=== PATIENT | female | born 1995 | race Caucasian/White ===

== ENCOUNTER 2021-02-25 18:00 | Outpatient (CLI) | payer BC, SELFPAY ==
[2021-02-25 18:19] VITALS: BP 122/69; PULSE 82
[2021-02-25 18:21] VITALS: BMI 21.4
[2021-02-25 19:30] LABS: Absolute Lymphocyte Count 1.95 X10^3/uL (0.83-4.51); Absolute Neutrophil Count 4.7 X10^3/uL (2.0-7.7); Basophil# 0.04 X10^3/uL; Basophil% 0.5 % (0-1); Eosinophil# 0.09 X10^3/uL; Eosinophils% 1.2 % (0-5); Hematocrit 34.8 % (37-47); Hemoglobin 12.2 g/dL (12.0-15.0); Lymphocyte # 1.95 X10^3/ul (0.83-4.51); Lymphocyte % 26.8 % (19-41); Mean Corp Hgb Conc 35.1 g/dL (32-36); Mean Corpuscular Hgb 30.6 pg (27.0-32.0); Mean Corpuscular Volume 87.2 fL (81-99); Mean Platelet Vol. 9.9 fl (6.2-12.0); Monocyte# 0.52 X10^3/uL; Monocyte% 7.1 % (0-10); NRBC Flagged by Analyzer 0 % (0-5); Neutrophil # 4.65 X10^3/uL (2.7-7.7); Platelet Count 197 K/mm3 (150-450); RBC Distribution Width CV 12.3 % (11.6-14.6); RBC Distribution Width SD 39.5 fl (35.1-43.9); Red Blood Count 3.99 M/mm3 (4.2-5.4); White Blood Count 7.3 K/mm3 (4.4-11.0)
[2021-02-25 19:31] LABS: Color, Urine Yellow (Yellow); Glucose, Dipstick Normal (Normal); Ketone-Dipstick Negative (Negative); Leukocyte Esterase-Dipstick Negative /ul (Negative); Nitrite-Dipstick Negative (Negative); Occult Blood-Urine Negative /ul (Negative); Protein-Dipstick Negative (Negative); Urine Bilirubin Dipstick Negative (Negative); Urine Clarity Clear (Clear); Urine Urobilinogen Normal (Normal); Urine pH 6.5 (5.0 - 8.0)
--- NOTE | 2021-02-25 21:35 | OB.TRI.NOTE ---
HPI - General HPI Narrative LAKESHA CORTEZ, is a 25 F who presents with RLQ pain. The pain she rates a 7/10 and is with movement. No fever, chills, nausea, vomiting, urinary symptoms, change in BM's, vb, lof, ctx. Good FM. Eating well. Maternal Data Information NATALIYA Calculator Estimated Delivery Date Method Current WG Current Estimate 06/21/21 Ultrasound #1 23w 3d Other Estimates 06/16/21 LMP (Certain) 24w 1d PFSH PFSH Home Medications [id number] [] tab PO 02/25/21 [History Last Taken 02/24/21 18:30] Allergy/AdvReac Type Severity Reaction Status Date / Time No Known Allergies Allergy Verified 02/25/21 18:22 NST FHR Rate Baby A Baseline: 130 Variability:: Moderate NST Reactive:: Appropriate for gestational age Assessment & Plan (1) 23 weeks gestation of : PLAN: Abd exam non acute VSS Afebrile WBC of 7 Likely MSK and round ligament pain Discussed Tylenol PRN To call office in morning if pain not improving (2) RLQ abdominal pain:
== END 2021-02-25 19:55 | disposition home or self-care (01) ==
LOC: WPOUT 18:18 → WP 18:18
PROVIDERS: Visit Provider Obstetrics & Gynecology
DX: O26.892 Other specified pregnancy related conditions, second trimester (principal); R10.31 Right lower quadrant pain; Z3A.23 23 weeks gestation of pregnancy
CPT/HCPCS: 36415; 59025; 59050; 81002; 85025; 99218; G0378

== ENCOUNTER 2021-06-14 04:55 | Outpatient (CLI) | payer BC, SELFPAY ==
[2021-06-14 05:10] VITALS: BMI 23.3
[2021-06-14] MEDS: Acetaminophen 500 MG Tablet 1000 MG PO (05:25)
[2021-06-14] MEDS: Lactated Ringers 1,000 ML 999 ML IV (05:26)
[2021-06-14 05:29] VITALS: BP 122/84; PULSE 100; RESP 16; TEMP 36.5; O2SAT 100
[2021-06-14 05:46] LABS: Absolute Lymphocyte Count 1.81 X10^3/uL (0.83-4.51); Absolute Neutrophil Count 4.5 X10^3/uL (2.0-7.7); Basophil# 0.03 X10^3/uL; Basophil% 0.4 % (0-1); Eosinophil# 0.08 X10^3/uL; Eosinophils% 1.1 % (0-5); Hemoglobin 12.6 g/dL (12.0-15.0); Lymphocyte # 1.81 X10^3/ul (0.83-4.51); Lymphocyte % 25.7 % (19-41); Mean Corpuscular Hgb 30.5 pg (27.0-32.0); Mean Corpuscular Volume 84.7 fL (81-99); Monocyte# 0.57 X10^3/uL; Monocyte% 8.1 % (0-10); NRBC Flagged by Analyzer 0 % (0-5); Neutrophil # 4.53 X10^3/uL (2.7-7.7); Neutrophil % 64.3 % (47-70); Platelet Count 223 K/mm3 (150-450); RBC Distribution Width CV 12.1 % (11.6-14.6); RBC Distribution Width SD 36.3 fl (35.1-43.9); Red Blood Count 4.13 M/mm3 (4.2-5.4); White Blood Count 7.1 K/mm3 (4.4-11.0)
[2021-06-14] MEDS: Lactated Ringers 1,000 ML 150 ML IV (06:28)
--- NOTE | 2021-06-14 07:20 | NURSING ---
Dr. James at bedside with ultrasound to confirm breech presentation. Fetus discovered to be in vertex position with favorable lie for vaginal delivery. Plan is to discharge patient home. Office will call patient to schedule appointment for plan going forward. Patient agreeable with plan.
--- NOTE | 2021-06-14 07:29 | PCM.PN.BLA ---
Progress Note At bedside to examine pt. She felt some abdominal pains yesterday and wondered if the baby turned. TAUElham performed showing baby in vertex presentation. On palpation he feels engaged in the pelvis. Discussed elective IOL versus awaiting spontaneous labor. Discussed possibility that baby turns to breech again, but based on exam today he feels engaged and I think that is unlikely. Will have the office call her to schedule follow up on Thursday to re ultrasound her and discuss induction.
== END 2021-06-14 23:59 | disposition home or self-care (01) ==
LOC: WP 07:42 → WPOUT 08:23 → WP 08:23
PROVIDERS: Referring Provider Obstetrics & Gynecology; Visit Provider Obstetrics & Gynecology
PROC: (CPT 59514; principal; 2021-06-14 07:15)
DX: O26.899 Other specified pregnancy related conditions, unspecified trimester (principal); R10.9 Unspecified abdominal pain
CPT/HCPCS: 96360; 36415; 59050; 76815; 85025; 86850; 86900; 86901; 87426; 99218; J7120; G0378

== ENCOUNTER 2021-06-25 06:50 | Inpatient (IN) | payer BC, SELFPAY ==
[2021-06-25] VITALS (66 sets, daily range): BP systolic 96–142; BP diastolic 50–82; PULSE 63–128; RESP 16; TEMP 36.3–37.1; O2SAT 82–100; BMI 23.0
[2021-06-25] MEDS: Lactated Ringers 1,000 ML 50 ML IV (08:01)
[2021-06-25] MEDS: Oxytocin 30 units/NS 500 ml 30 UNITS/500 ML IV.SOLN IV (08:12)
[2021-06-25 08:20] LABS: Absolute Lymphocyte Count 1.89 X10^3/uL (0.83-4.51); Absolute Neutrophil Count 6.2 X10^3/uL (2.0-7.7); Basophil# 0.05 X10^3/uL; Basophil% 0.6 % (0-1); Eosinophil# 0.12 X10^3/uL; Eosinophils% 1.4 % (0-5); Hematocrit 35.8 % (37-47); Hemoglobin 12.6 g/dL (12.0-15.0); Lymphocyte # 1.89 X10^3/ul (0.83-4.51); Lymphocyte % 21.4 % (19-41); Mean Corp Hgb Conc 35.2 g/dL (32-36); Mean Corpuscular Hgb 29.6 pg (27.0-32.0); Mean Corpuscular Volume 84.2 fL (81-99); Mean Platelet Vol. 10.4 fl (6.2-12.0); Monocyte% 6.8 % (0-10); NRBC Flagged by Analyzer 0 % (0-5); Neutrophil # 6.15 X10^3/uL (2.7-7.7); Neutrophil % 69.5 % (47-70); Platelet Count 183 K/mm3 (150-450); RBC Distribution Width CV 12.8 % (11.6-14.6); RBC Distribution Width SD 38.7 fl (35.1-43.9); Red Blood Count 4.25 M/mm3 (4.2-5.4); White Blood Count 8.8 K/mm3 (4.4-11.0)
--- NOTE | 2021-06-25 09:16 | PCM.HP.OB ---
HPI - General General Date of Admission: 06/25/21 HPI Narrative LAKESHA CORTEZ, is a 25 F who presents for induction. Maternal Data Information NATALIYA Calculator Estimated Delivery Date Method Current WG Current Estimate 06/21/21 Ultrasound #1 40w 4d Other Estimates 06/16/21 LMP (Certain) 41w 2d PFSH PFSH Medical History (Updated 06/25/21 @ 09:[address] Daniel Quiñones MD) Post term over 40 weeks Medical History no medical history Home Medications [id number]-[id number] [] 1 tab PO DAILY 02/25/21 [History Last Taken 06/24/21 20:00 1 tab] Allergy/AdvReac Type Severity Reaction Status Date / Time No Known Allergies Allergy Verified 06/25/21 07:34 Social History Smoking Status: Never smoker History Elective abortions Hx Para 0 Spontaneous abortions Hx # Term Pregnancies Ectopic pregnancies Hx # Pregnancies Multiple births # of living children NST FHR Rate Baby A Baseline: 130 Variability:: Moderate Accelerations:: 15 x 15 Decelerations:: None Uterine Activity:: Q 2 minutes Vital Signs Vital Signs Vital Signs: 06/25/21 07:34 06/25/21 07:49 06/25/21 07:56 Temperature 97.4 F L 97.3 F L 97.7 F L Temperature Source Temporal Oral Pulse Rate 98 Blood Pressure 124/72 H BP Systolic 124 BP Diastolic 72 Weight Weight: 134 lb 4.184 oz Body Mass Index (BMI) 23.0 Labs Labs Labs: Blood Type A POSITIVE Antibody Screen NEGATIVE Hct 35.8 % (37-47) L Hgb 12.6 g/dL (12.0-15.0) See [facility] H&P Assessment & Plan (1) Post term over 40 weeks: COMMENT: @ 40&4 PLAN: Admit to L&D Induction - s/p AROM & on pitocin GBS positive - pcn per protocol COVID negative Pain - epidural as desired EFW - less than 4500g, patient with adequate pelvis Routine care
[2021-06-25] MEDS: Lactated Ringers 500 ML 999 ML IV ×2 (11:52→13:44)
[2021-06-25] MEDS: fentaNYL-bupivacaine (epidural) 100 ML BAG EPIDURAL (12:54)
[2021-06-25] MEDS: Penicillin G 3,000,000 Units 50 ML 100 UNITS IV (13:03)
--- NOTE | 2021-06-25 15:47 | EX.PCM.OBRPT ---
Maternal Data Information NATALIYA Calculator Estimated Delivery Date Method Current Current Estimate 06/21/21 Ultrasound #1 40w 4d Other Estimates 06/16/21 LMP (Certain) 41w 2d Vaginal Delivery Maternal Presentation Maternal Presentation: Elective Induction Type of Induction: Pitocin and Amniotomy Operative Information Date of Procedure: 06/25/21 Pre-Operative Diagnosis: Elective induction @ 40&4 Post-Operative Diagnosis: Same Surgery / Procedure Performed: Spontaneous Vaginal Delivery Type of Anesthesia: Epidural Estimated Blood Loss: 400ml Findings Description of Procedure: Patient prepped & draped when C/C/+2. She pushed well to deliver the head. Tight nuchal cord clamped & cut. Then head gently guided to allow delivery of anterior and posterior shoulders. No excess traction placed on head. Body delivered easily. Placenta delivered with gentle traction and good uterine tone obtained. Presentation: OSMANI Amniotic Membrane Rupture Type: Artificial Amniotic Fluid Description: Clear Placental Delivery Description: Expressed Placenta Disposition: [facility] Specimen(s) Removed: Placenta Cord Vessel Description: 3 Vessels Cord Entanglement: Around neck x 2, tight Nuchal Cord Compression: With compression A Gender: Male ([place]) (1 minute): 8 (5 minute): 9 Delayed Cord Clamping: No Post Vaginal Delivery Medications Given After Delivery: IV Pitocin Episiotomy Description: None Laceration: 2nd degree (bilateral vaginal - repaired with 3-0 vicryl) Complication Complications: None
[2021-06-25] MEDS: Oxytocin 30 units/NS 500 ml 30 UNITS/500 ML IV.SOLN 334 UNITS IV (16:21)
--- NOTE | 2021-06-25 18:38 | NURSING ---
Pt epidural cath removed, blue tip intact.
[2021-06-25] MEDS: 0.9% Saline Lock 10 ML Syringe IV (18:54)
[2021-06-25] MEDS: Ibuprofen 600 MG Tablet PO (22:17)
[2021-06-25] MEDS: Acetaminophen 500 MG Tablet 1000 MG PO (23:55)
[2021-06-26 00:13] VITALS: BP 108/81; PULSE 86; RESP 16; TEMP 36.6
[2021-06-26 03:15] VITALS: BP 123/59; PULSE 91; RESP 16; TEMP 36.5
[2021-06-26] MEDS: Ibuprofen 600 MG Tablet PO ×2 (04:23→10:14)
[2021-06-26] MEDS: Acetaminophen 500 MG Tablet 1000 MG PO ×2 (06:11→18:33)
[2021-06-26 08:25] VITALS: BP 115/45; PULSE 90; RESP 16; TEMP 36.8
--- NOTE | 2021-06-26 08:56 | PCM.PROGNOTE ---
Subjective Subjective patient seen at bedside, doing well. Patient reports good pain control. lochia mild. Objective Data Objective Data Vital Signs: Vital Signs Temp Pulse Resp BP Pulse Ox 98.2 F 90 16 115/45 L 97 06/26/21 08:25 06/26/21 08:25 06/26/21 08:25 06/26/21 08:25 06/25/21 20:54 Oxygen Delivery Method Room Air Weight: 60.9 kg Body Mass Index (BMI) 23.0 Intake & Output: Intake and Output for Last 24 Hours 06/24/21 06/25/21 06/26/21 23:59 23:59 23:59 Intake Total 2607.41 / 2607.41 Output Total 200 / 200 700 / 700 Balance 2407.41 / 2407.41 -700 / -700 Lab / Micro Data Result Diagrams: 06/25/21 07:55 Labs: Laboratory Results - last 24 hr 06/25/21 07:55: Blood Type A POSITIVE, Antibody Screen NEGATIVE Micro: Microbiology 06/25/21 08:00 Nasal Secretion SARS-CoV-2 Antigen (Rapid) - Final Physical Exam Const alert and oriented x3 General Appearance: cooperative HEENT normocephalic Neck General: normal visual inspection GI soft to palpation and non-distended GI Narrative: Fundus firm Extremity normal to inspection and no calf tenderness Skin no rashes or lesions noted Neuro oriented x3 and CN's II-XII intact bilaterally Psych mental status grossly normal Assessment & Plan Assessment/Plan (1) Vaginal delivery: PLAN: PPD#1 , Doing well Routine care pain mgmt ambulation possible dc home after 24hrs
--- NOTE | 2021-06-26 08:58 | PCM.DC ---
Discharge Instructions Diet Discharge Diet: No restrictions Activity May resume sexual activity in: 6-8 weeks Dressing / Incision Call your doctor if you observe: Fever of 101 or Higher, Inability to urinate, Using more than 1 pad per hour and Uncontrolled pain Follow Up Care Please Follow Up With: Denice Ayala MD When: 1-2 weeks post and again at 6 weeks post . [phone] Test Results: Test results from this visit will be discussed in further detail at your follow-up appointment, if applicable. Discharge Plan Admission Admit Date/Time: 06/25/21 06:50 Attending Provider: Daniel Quiñones Primary Care Provider: Care Physician,Romy Primary Discharge Orders/Prescriptions Prescriptions: New acetaminophen 500 mg Tablet 1,000 mg PO Q6H PRN PRN (Reason: Pain 1-10 Or Fever) Qty: 0 RF: 0 ibuprofen 600 mg Tablet 600 mg PO Q6H PRN PRN (Reason: Pain Score 1-3) Qty: 0 RF: 0 Continued sxtuamfu-rqx-Yn-FA 1 mg Tablet 1 tab PO DAILY RF: 0 Referrals / Follow Up: Care Physician,No Primary [Primary Care Provider] - Disposition Disposition (needs filled in before D/C Order can be placed): Home, Self Care
[2021-06-26] MEDS: Prenatal Vits Tablet 1 TABLET PO (10:02)
[2021-06-26 12:00] VITALS: BP 113/41; PULSE 84; RESP 16; TEMP 36.9
[2021-06-26 16:39] VITALS: BP 116/60; PULSE 88; RESP 14; TEMP 36.8
== END 2021-06-26 19:30 | disposition home or self-care (01) | DRG 806 ==
PROVIDERS: Admitting Provider Obstetrics & Gynecology; Referring Provider Obstetrics & Gynecology; Visit Provider Obstetrics & Gynecology
DX: O48.0 Post-term pregnancy (principal); Z37.0 Single live birth; O98.82 Other maternal infectious and parasitic diseases complicating childbirth; B95.1 Streptococcus, group B, as the cause of diseases classified elsewhere; Z3A.40 40 weeks gestation of pregnancy; O69.1XX0 Labor and delivery complicated by cord around neck, with compression, not applicable or unspecified; O70.1 Second degree perineal laceration during delivery
CPT/HCPCS: 59025; 59050; 85025; 86850; 86900; 86901; 87426; 99218; J7120; A4216; G0378